=== PATIENT | male | born 1970 | race Caucasian/White ===

== ENCOUNTER 2016-06-26 18:23 | Emergency (ER) ==
[2016-06-26] MEDS ORDERED: TORADOL IM ONE (18:25)
[2016-06-26] MEDS ORDERED: PERCOCET-10 PO ONE (18:25)
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
[2016-06-26] MEDS ORDERED: ZOFRAN ODT PO ONE (19:42)
[2016-06-26] MEDS ORDERED: DILAUDID IM ONE (19:42)
[2016-06-26 19:59] VITALS: BP 137/88
--- NOTE | 2016-06-26 21:28 | Diag Imaging Result Document ---
PROCEDURE NAME: HEAD/C-SPINE W/O CONTRAST - 06/26/2016 STUDY: CT brain and cervical spine without contrast. PROTOCOL: Dose reduction protocol. BRAIN WITHOUT: No parenchymal hemorrhage. No epidural or subdural hematoma. No subarachnoid hemorrhage. No skull fracture. No hydrocephalus. No sinus opacification, though there is mucosal thickening and a small amount of mucus in the frontal, ethmoid, maxillary, and sphenoid sinuses. IMPRESSION: 1. No hemorrhage. No injury. 2. Sinusitis. STUDY: CT cervical spine without contrast. There is good alignment to the cervical spine. No precervical soft tissue swelling. No subluxation. No fracture. IMPRESSION: No acute bony injury. A preliminary report was given at 7:30 p.m.
--- NOTE | 2016-06-26 21:36 | Diag Imaging Result Document ---
PROCEDURE NAME: LUMBAR SPINE W/O CONTRAST - 06/26/2016 STUDY: CT lumbar spine without contrast. There is good alignment to the lumbar spine. No compressed vertebrae. No other fracture. No subluxation. IMPRESSION: No acute bony injury. A preliminary report was given at 7:30 p.m.
--- NOTE | 2016-06-27 07:33 | Diag Imaging Result Document ---
PROCEDURE NAME: LOWER LEG-LEFT - 06/26/2016 LEFT TIBIA AND FIBULA, FOUR VIEWS: FINDINGS: No fracture. No dislocation. IMPRESSION: No acute bony injury.
--- NOTE | 2016-06-27 08:38 | Diag Imaging Result Document ---
PROCEDURE NAME: RIBS UNILAT W/PA CHEST LEFT - 06/26/2016 PLAIN RADIOGRAPH OF THE CHEST AND LEFT RIBS, 5 VIEWS: COMPARISON: Chest radiograph dated 02/27/2015. FINDINGS: No definite rib fracture or intrinsic osseous lesion can be identified. The lungs are grossly clear. There is no evidence of pleural fluid collection or pneumothorax. Cardiac silhouette and central vasculature are grossly unremarkable. IMPRESSION: No definite rib fracture identified by plain radiograph.
== END 2016-06-26 20:07 | disposition home or self-care (01) ==
LOC: EDBD → ED 18:23
DX: M54.9 Dorsalgia, unspecified (principal); M54.2 Cervicalgia; R07.89 Other chest pain; M79.605 Pain in left leg; V49.50XA Passenger injured in collision with unspecified motor vehicles in traffic accident, initial encounter; F17.210 Nicotine dependence, cigarettes, uncomplicated; Z71.6 Tobacco abuse counseling; Z79.899 Other long term (current) drug therapy
CPT/HCPCS: 70450; 71101; 72125; 72131; 96372; J1885